=== PATIENT | female | born 1980 | race Caucasian/White ===

== ENCOUNTER → 2017-12-11 | Outpatient (CLI) | payer MEDICARE ==
[~2017-12-11] MED LIST: DITROPAN XL15 MG PO; KEFLEX500 MG PO; MACROBID 100 M100 MG PO; OMEPRAZOLE20 MG PO; SPRINTEC1 EACH; SURFAK240 MG PO
--- NOTE | 2017-12-11 15:06 | Diagnostic Imaging Report ---
EXAM: Renal Ultrasound INDICATION: Renal calculus COMPARISON: None TECHNIQUE: Transverse and longitudinal images of the kidneys and bladder were obtained. FINDINGS: Right Kidney: Length: 11.2 cm Appearance: Normal echogenicity. Collecting system: No hydronephrosis Stones: None Cyst/Mass: None Left Kidney: Length: 10 cm Appearance: Normal echogenicity. Collecting system: No hydronephrosis Stones: None Cyst/Mass: None Bladder: Unremarkable in appearance. Right ureteral jet is seen. IMPRESSION: Unremarkable bilateral renal ultrasound. No sonographic evidence of renal stone. Signed by: Dr. Tiana Salmon MD on 12/11/2017 3:03 PM
--- NOTE | 2017-12-11 15:13 | Diagnostic Imaging Report ---
RADIOGRAPH(S) OF THE ABDOMEN AND PELVIS, 2 view(s) HISTORY: Calculus of kidney COMPARISON: None available. FINDINGS: No specific evidence of obstruction or ileus. No definite calcification in the region of the kidneys. Partially visualized radiopaque catheter at the right upper quadrant of the abdomen with the tip projecting at the right mid abdomen. A second coiled catheter projects at the pelvis. Multiple peripheral pelvic calcifications, most likely phleboliths. The bones are partially obscured by stool and overlying bowel gas. Multilevel posterior lumbosacral fusion defects. IMPRESSION: 1. Nonobstructive bowel gas pattern. 2. No definitive urinary tract calculus, within the limitations of radiographs. Signed by: Dr. Rakesh Quintero D.O., M.M.M. on 12/11/2017 3:10 PM
== END ==
LOC: US 13:50
PROVIDERS: ATTEND Urology
DX: N20.0 Calculus of kidney (principal)
CPT/HCPCS: 74018; 76770

== ENCOUNTER → 2019-05-29 | Outpatient (CLI) | payer MEDICARE ==
--- NOTE | 2019-05-29 12:00 | Diagnostic Imaging Report ---
EXAM: Renal Ultrasound INDICATION: Urinary tract infection COMPARISON: Renal ultrasound 12/11/2017 TECHNIQUE: Transverse and longitudinal images of the kidneys and bladder were obtained. FINDINGS: Right Kidney: Length: 9.6 cm Appearance: Normal echogenicity. Collecting system: No hydronephrosis Stones: None Cyst/Mass: None Left Kidney: Length: 9.0 cm Appearance: Normal echogenicity. Collecting system: No hydronephrosis Stones: None Cyst/Mass: None Bladder: No mass or. Bilateral ureteral jets visualized. Prevoid volume estimate of 72 cc. IMPRESSION: No hydronephrosis or renal calculi. Signed by: Bishnu Javed MD on 05/29/2019 11:56 AM
== END ==
LOC: US 11:10
PROVIDERS: ATTEND Urology
DX: N39.0 Urinary tract infection, site not specified (principal)
CPT/HCPCS: 76770

== ENCOUNTER → 2021-01-06 | Outpatient (CLI) | payer MEDICARE | LOC: US 14:45 | PROVIDERS: ATTEND Urology | DX: N13.30 Unspecified hydronephrosis (principal) | CPT/HCPCS: 76770; 76857 ==

== ENCOUNTER → 2021-02-01 | Day surgery (SDC) | payer MEDICARE ==
[2021-01-30 15:32] LABS: BASOPHILS % 0.2 % (0.0-1.0); EOSINOPHILS # (AUTO) 0.1 (0.0-0.4); EOSINOPHILS % 0.8 % (0.0-6.0); HEMATOCRIT 40.8 % (34.2-44.1); HEMOGLOBIN 13.1 g/dL (12.0-16.0); LYMPHOCYTES # (AUTO) 1.6 (1.0-3.2); LYMPHOCYTES % 26.9 % (18.0-39.1); MEAN CORPUSCULAR HEMOGLOBIN 28.8 pg (28-32); MEAN CORPUSCULAR HGB CONC 32.1 g/dL (31-35); MEAN CORPUSCULAR VOLUME 89.7 fL (81-99); MONOCYTES # (AUTO) 0.7 (0.2-0.8); MONOCYTES % 11.8 % (4.4-11.3); NEUTROPHILS # (AUTO) 3.7 (2.1-6.9); NEUTROPHILS % 60.1 % (38.7-80.0); PLATELET COUNT 210 x10e3/uL (140-360); RED BLOOD COUNT 4.55 x10e6/uL (3.6-5.1); RED CELL DISTRIBUTION WIDTH 13.8 % (11.7-14.4)
[2021-01-30 16:51] LABS: ANION GAP 15.6 mmol/L (8-16); CALCIUM 8.7 mg/dL (8.4-10.2); CREATININE, SERUM 0.58 mg/dL (0.57-1.11); POTASSIUM 3.6 mmol/L (3.5-5.1)
[~2021-02-01] MED LIST changes: +B&O 60MG R/S 60 MG SUPP PR ONE; +BACLOFEN20 MG PO; +BOTULINUM TOXIN TYPE A 100 UNIT VIAL IM ONE; +CBD GUMMY; +D3; +DAYSEE 0.15-0.1 EACH; +DEXAMETHASONE SOD PHOS INJ 4 MG/ML SDV ONE; +ELDERBERRY ZIN1 EACH; +GENTAMICIN 80MG/NS 100 ML 200 ML IV ONE; +HYDROCHLOROTHIA25 MG; +IOPAMIDOL 300MG/ML 50ML INFUS..BTL IV ONE; +LIDOCAINE HCL 2% LOCAL INJ 5 ML SDV VIAL INJ ONE; +LOSARTAN POTASS25 MG PO; +ONDANSETRON HCL INJ 2MG/ML 2ML 2 MG/ML VIAL ONE; +POVIDONE IODINE 0.05% 0.05 % ML PO ONE; +PROPOFOL IV EMULSION 10 MG/ML 20 ML VIAL ONE; +SEVOFLURANE INHAL SOLN 250 ML PEN BTL ONE
[2021-02-01 10:03] VITALS: BP 124/76
== END | disposition home or self-care (01) ==
LOC: OR 06:36
PROVIDERS: ATTEND Urology
DX: N39.41 Urge incontinence (principal); N39.0 Urinary tract infection, site not specified; N81.2 Incomplete uterovaginal prolapse; N81.6 Rectocele; N31.8 Other neuromuscular dysfunction of bladder; N32.89 Other specified disorders of bladder; N32.3 Diverticulum of bladder; Q05.9 Spina bifida, unspecified; G83.9 Paralytic syndrome, unspecified; I10 Essential (primary) hypertension; M19.90 Unspecified osteoarthritis, unspecified site; M41.9 Scoliosis, unspecified; J39.2 Other diseases of pharynx; K21.9 Gastro-esophageal reflux disease without esophagitis; Z88.3 Allergy status to other anti-infective agents; Z91.040 Latex allergy status; Z01.810 Encounter for preprocedural cardiovascular examination; Z01.812 Encounter for preprocedural laboratory examination; Z20.822 Contact with and (suspected) exposure to COVID-19; Z79.899 Other long term (current) drug therapy; Z98.2 Presence of cerebrospinal fluid drainage device; Z86.73 Personal history of transient ischemic attack (TIA), and cerebral infarction without residual deficits
CPT/HCPCS: 36415 ×2; 52005; 52287; 74420; 80048; 84702; 85025; 87086; 93005; C1758; J0587; J1100; J1580; J2001; J2405; J2704; Q9967; U0002

== ENCOUNTER → 2021-05-03 | Day surgery (SDC) | payer MEDICARE ==
[2021-05-02 10:33] LABS: BASOPHILS % 0.2 % (0.0-1.0); EOSINOPHILS # (AUTO) 0.1 (0.0-0.4); EOSINOPHILS % 1.5 % (0.0-6.0); HEMATOCRIT 40.9 % (34.2-44.1); HEMOGLOBIN 13.2 g/dL (12.0-16.0); LYMPHOCYTES # (AUTO) 1.4 (1.0-3.2); LYMPHOCYTES % 26.5 % (18.0-39.1); MEAN CORPUSCULAR HEMOGLOBIN 28.5 pg (28-32); MEAN CORPUSCULAR HGB CONC 32.3 g/dL (31-35); MEAN CORPUSCULAR VOLUME 88.3 fL (81-99); MONOCYTES # (AUTO) 0.4 (0.2-0.8); MONOCYTES % 8.2 % (4.4-11.3); NEUTROPHILS # (AUTO) 3.4 (2.1-6.9); NEUTROPHILS % 63.2 % (38.7-80.0); PLATELET COUNT 204 x10e3/uL (140-360); RED BLOOD COUNT 4.63 x10e6/uL (3.6-5.1); RED CELL DISTRIBUTION WIDTH 13.8 % (11.7-14.4)
[2021-05-02 10:56] LABS: ANION GAP 13.4 mmol/L (8-16); CALCIUM 8.3 mg/dL (8.4-10.2); CREATININE, SERUM 0.59 mg/dL (0.57-1.11); POTASSIUM 3.4 mmol/L (3.5-5.1)
[~2021-05-03] MED LIST changes: +CEFTRIAXONE 1 GM VIAL ONE; +DIPHENHYDRAMINE HCL INJ 50 MG/ML VIAL ONE; +SODIUM CHLORIDE 0.9% 50ML 100 ML ONE
[2021-05-03 10:40] VITALS: BP 138/70
== END | disposition home or self-care (01) ==
LOC: OR 07:47
PROVIDERS: ATTEND Urology
DX: N39.41 Urge incontinence (principal); N31.9 Neuromuscular dysfunction of bladder, unspecified; N39.0 Urinary tract infection, site not specified; N81.6 Rectocele; N36.41 Hypermobility of urethra; N81.2 Incomplete uterovaginal prolapse; Q05.9 Spina bifida, unspecified; I10 Essential (primary) hypertension; K21.9 Gastro-esophageal reflux disease without esophagitis; R05.9 Cough, unspecified; Z88.3 Allergy status to other anti-infective agents; Z91.040 Latex allergy status; Z01.812 Encounter for preprocedural laboratory examination; Z20.822 Contact with and (suspected) exposure to COVID-19; Z79.899 Other long term (current) drug therapy; Z86.73 Personal history of transient ischemic attack (TIA), and cerebral infarction without residual deficits; Z86.69 Personal history of other diseases of the nervous system and sense organs
CPT/HCPCS: 36415 ×2; 52005; 52287; 74420; 80048; 84702; 85025; C1758; J0587; J0696; J1100; J1200; J1580; J2001; J2405; J2704; Q9967; U0002

== ENCOUNTER → 2021-08-11 | Day surgery (SDC) | payer MEDICARE ==
[2021-08-09 15:34] LABS: BASOPHILS % 0.2 % (0.0-1.0); EOSINOPHILS # (AUTO) 0.1 (0.0-0.4); EOSINOPHILS % 0.7 % (0.0-6.0); HEMATOCRIT 41.1 % (34.2-44.1); HEMOGLOBIN 13.1 g/dL (12.0-16.0); LYMPHOCYTES # (AUTO) 2.2 (1.0-3.2); LYMPHOCYTES % 23.2 % (18.0-39.1); MEAN CORPUSCULAR HEMOGLOBIN 28.8 pg (28-32); MEAN CORPUSCULAR HGB CONC 31.9 g/dL (31-35); MEAN CORPUSCULAR VOLUME 90.3 fL (81-99); MONOCYTES # (AUTO) 0.6 (0.2-0.8); MONOCYTES % 6.6 % (4.4-11.3); NEUTROPHILS # (AUTO) 6.7 (2.1-6.9); PLATELET COUNT 240 x10e3/uL (140-360); RED BLOOD COUNT 4.55 x10e6/uL (3.6-5.1); RED CELL DISTRIBUTION WIDTH 14.4 % (11.7-14.4)
[2021-08-09 15:51] LABS: ANION GAP 12.3 mmol/L (8-16); CALCIUM 8.3 mg/dL (8.4-10.2); CREATININE, SERUM 0.62 mg/dL (0.57-1.11); POTASSIUM 4.3 mmol/L (3.5-5.1)
[~2021-08-11] MED LIST changes: -CEFTRIAXONE 1 GM VIAL ONE; -DAYSEE 0.15-0.1 EACH; +DAYSEE 0.15-0.1 EACH PO; -DIPHENHYDRAMINE HCL INJ 50 MG/ML VIAL ONE; -ELDERBERRY ZIN1 EACH; +ELDERBERRY ZIN1 EACH PO; +FENTANYL CITRATE/PF 100MCG/2 ML INJ ONE; -IOPAMIDOL 300MG/ML 50ML INFUS..BTL IV ONE; +IOPAMIDOL 610MG/1ML 300 MG/ML VIAL IV ONE; +LOSARTAN-HCTZ1 EACH PO; +MIDAZOLAM HCL 2 MG/2 ML VIAL ONE; +PIPERACILLIN/TAZOBACTAM 3.375 GM VIAL ONE; -SODIUM CHLORIDE 0.9% 50ML 100 ML ONE; +VITAMIN D310 MCG PO
[2021-08-11 14:16] VITALS: BP 106/72
== END | disposition home or self-care (01) ==
LOC: OR 10:53
PROVIDERS: ATTEND Urology
DX: N39.41 Urge incontinence (principal); N39.0 Urinary tract infection, site not specified; N32.89 Other specified disorders of bladder; N81.10 Cystocele, unspecified; N81.6 Rectocele; N36.41 Hypermobility of urethra; G47.33 Obstructive sleep apnea (adult) (pediatric); E66.9 Obesity, unspecified; I10 Essential (primary) hypertension; G40.909 Epilepsy, unspecified, not intractable, without status epilepticus; Z88.1 Allergy status to other antibiotic agents; Z91.040 Latex allergy status; Z01.810 Encounter for preprocedural cardiovascular examination; Z01.812 Encounter for preprocedural laboratory examination; Z20.822 Contact with and (suspected) exposure to COVID-19; Z79.899 Other long term (current) drug therapy; Z68.30 Body mass index [BMI] 30.0-30.9, adult
CPT/HCPCS: 36415 ×2; 52005; 52287; 74420; 80048; 84702; 85025; 93005; J0587; J1100; J1580; J2001; J2250; J2405; J2543; J2704; J3010; Q9967; U0002

== ENCOUNTER → 2021-12-01 | Day surgery (SDC) | payer MEDICARE ==
[~2021-12-01] MED LIST changes: +CEFTRIAXONE 1 GM VIAL ONE; +CIPRO250 MG PO; -PIPERACILLIN/TAZOBACTAM 3.375 GM VIAL ONE
[2021-12-01 10:31] LABS: BASOPHILS % 0.1 % (0.0-1.0); EOSINOPHILS # (AUTO) 0.1 (0.0-0.4); EOSINOPHILS % 0.9 % (0.0-6.0); HEMATOCRIT 40.1 % (34.2-44.1); LYMPHOCYTES # (AUTO) 1.8 (1.0-3.2); LYMPHOCYTES % 23.2 % (18.0-39.1); MEAN CORPUSCULAR HEMOGLOBIN 29.2 pg (28-32); MEAN CORPUSCULAR HGB CONC 32.4 g/dL (31-35); MEAN CORPUSCULAR VOLUME 90.1 fL (81-99); MONOCYTES # (AUTO) 0.5 (0.2-0.8); MONOCYTES % 6.6 % (4.4-11.3); NEUTROPHILS # (AUTO) 5.2 (2.1-6.9); NEUTROPHILS % 68.7 % (38.7-80.0); PLATELET COUNT 209 x10e3/uL (140-360); RED BLOOD COUNT 4.45 x10e6/uL (3.6-5.1); RED CELL DISTRIBUTION WIDTH 13.3 % (11.7-14.4)
[2021-12-01 11:12] LABS: ANION GAP 13.8 mmol/L (8-16); CALCIUM 8.3 mg/dL (8.4-10.2); CREATININE, SERUM 0.59 mg/dL (0.57-1.11); POTASSIUM 3.8 mmol/L (3.5-5.1)
[2021-12-01 13:45] VITALS: BP 116/85
== END | disposition home or self-care (01) ==
LOC: OR 09:00
PROVIDERS: ATTEND Urology
DX: N31.9 Neuromuscular dysfunction of bladder, unspecified (principal); N39.41 Urge incontinence; N39.0 Urinary tract infection, site not specified; N81.6 Rectocele; N36.41 Hypermobility of urethra; N81.2 Incomplete uterovaginal prolapse; N32.89 Other specified disorders of bladder; Q05.9 Spina bifida, unspecified; G82.20 Paraplegia, unspecified; I10 Essential (primary) hypertension; Z88.1 Allergy status to other antibiotic agents; Z91.040 Latex allergy status; Z79.899 Other long term (current) drug therapy
CPT/HCPCS: 36415; 52005; 52287; 74420; 80048; 85025; 87086; 93005; C1758; J0587; J0696; J1100; J1580; J2001; J2250; J2405; J2704; J3010; Q9967

== ENCOUNTER → 2022-03-16 | Day surgery (SDC) | payer MEDICARE ==
[2022-03-14 13:24] LABS: BASOPHILS % 0.3 % (0.0-1.0); EOSINOPHILS # (AUTO) 0.1 (0.0-0.4); EOSINOPHILS % 0.6 % (0.0-6.0); HEMATOCRIT 44.3 % (34.2-44.1); HEMOGLOBIN 13.8 g/dL (12.0-16.0); LYMPHOCYTES # (AUTO) 1.8 (1.0-3.2); LYMPHOCYTES % 23.4 % (18.0-39.1); MEAN CORPUSCULAR HEMOGLOBIN 28.9 pg (28-32); MEAN CORPUSCULAR HGB CONC 31.2 g/dL (31-35); MEAN CORPUSCULAR VOLUME 92.9 fL (81-99); MONOCYTES # (AUTO) 0.6 (0.2-0.8); MONOCYTES % 7.1 % (4.4-11.3); NEUTROPHILS # (AUTO) 5.4 (2.1-6.9); NEUTROPHILS % 68.3 % (38.7-80.0); PLATELET COUNT 263 x10e3/uL (140-360); RED BLOOD COUNT 4.77 x10e6/uL (3.6-5.1); RED CELL DISTRIBUTION WIDTH 13.3 % (11.7-14.4)
[2022-03-14 13:42] LABS: ANION GAP 15.6 mmol/L (8-16); CALCIUM 9.1 mg/dL (8.4-10.2); CREATININE, SERUM 0.61 mg/dL (0.57-1.11); POTASSIUM 3.6 mmol/L (3.5-5.1)
[~2022-03-16] MED LIST changes: -B&O 60MG R/S 60 MG SUPP PR ONE; -DEXAMETHASONE SOD PHOS INJ 4 MG/ML SDV ONE; -FENTANYL CITRATE/PF 100MCG/2 ML INJ ONE; -GENTAMICIN 80MG/NS 100 ML 200 ML IV ONE; +METOCLOPRAMIDE HCL 10 MG/2ML VIAL ONE; -ONDANSETRON HCL INJ 2MG/ML 2ML 2 MG/ML VIAL ONE; +PHENYLEPHRINE HCL 1% 10 MG/ML VIAL ONE; -POVIDONE IODINE 0.05% 0.05 % ML PO ONE; -SEVOFLURANE INHAL SOLN 250 ML PEN BTL ONE
[2022-03-16 12:40] VITALS: BP 113/74
== END | disposition home or self-care (01) ==
LOC: OR 08:55
PROVIDERS: ATTEND Urology
DX: N31.9 Neuromuscular dysfunction of bladder, unspecified (principal); N39.41 Urge incontinence; N39.0 Urinary tract infection, site not specified; N81.2 Incomplete uterovaginal prolapse; N36.41 Hypermobility of urethra; N39.44 Nocturnal enuresis; N13.30 Unspecified hydronephrosis; N32.89 Other specified disorders of bladder; Q05.9 Spina bifida, unspecified; G82.20 Paraplegia, unspecified; I10 Essential (primary) hypertension; K21.9 Gastro-esophageal reflux disease without esophagitis; Z88.3 Allergy status to other anti-infective agents; Z91.040 Latex allergy status; Z88.1 Allergy status to other antibiotic agents; Z79.899 Other long term (current) drug therapy; Z01.810 Encounter for preprocedural cardiovascular examination; Z01.812 Encounter for preprocedural laboratory examination; Z96.89 Presence of other specified functional implants; Z86.73 Personal history of transient ischemic attack (TIA), and cerebral infarction without residual deficits
CPT/HCPCS: 36415; 52005; 52287; 74420; 80048; 85025; 87086; 93005; C1758; J0587; J0696; J2001; J2250; J2370; J2704; J2765; Q9967

== ENCOUNTER → 2022-06-06 | Day surgery (SDC) | payer MEDICARE ==
[~2022-06-06] MED LIST changes: +ACETAMINOPHEN 1000 MG/100 ML 100 ML IV ONE; +CEFEPIME HCL 1 GM VIAL ONE; -CEFTRIAXONE 1 GM VIAL ONE; +DEXAMETHASONE SOD PHOS INJ 4 MG/ML SDV ONE; +FENTANYL CITRATE/PF 100MCG/2 ML INJ ONE; +GENTAMICIN 80MG/NS 100 ML 200 ML IV ONE; +LACTATED RINGER'S 1,000 ML ONE; -METOCLOPRAMIDE HCL 10 MG/2ML VIAL ONE; -MIDAZOLAM HCL 2 MG/2 ML VIAL ONE; +ONDANSETRON HCL INJ 2MG/ML 2ML 2 MG/ML VIAL ONE; -PHENYLEPHRINE HCL 1% 10 MG/ML VIAL ONE; +POVIDONE IODINE 0.05% 0.05 % ML PO ONE; +SEVOFLURANE INHAL SOLN 250 ML PEN BTL ONE
[2022-06-06 08:36] LABS: ANION GAP 14.8 mmol/L (8-16); CALCIUM 9.3 mg/dL (8.4-10.2); CREATININE, SERUM 0.64 mg/dL (0.57-1.11); POTASSIUM 3.8 mmol/L (3.5-5.1)
[2022-06-06 11:20] VITALS: BP 113/99
== END | disposition home or self-care (01) ==
LOC: OR 07:13
PROVIDERS: ATTEND Urology
DX: N39.41 Urge incontinence (principal); N39.0 Urinary tract infection, site not specified; N81.3 Complete uterovaginal prolapse; N36.41 Hypermobility of urethra; N31.9 Neuromuscular dysfunction of bladder, unspecified; N39.44 Nocturnal enuresis; Q05.9 Spina bifida, unspecified; N13.30 Unspecified hydronephrosis; Z79.899 Other long term (current) drug therapy
CPT/HCPCS: 36415; 52005; 52287; 74420; 80048; 84702; 87086; C1758; J0131; J0587; J0692; J1100; J1580; J2001; J2405; J2704; J3010; J7121; Q9967

== ENCOUNTER 2022-07-06 10:33 | Emergency (ER) | payer MEDICARE ==
[~2022-07-06] VITALS: Ht 157.5 cm; Wt 72.6 kg
[~2022-07-06 10:33] MED LIST changes: -ACETAMINOPHEN 1000 MG/100 ML 100 ML IV ONE; -BOTULINUM TOXIN TYPE A 100 UNIT VIAL IM ONE; -CEFEPIME HCL 1 GM VIAL ONE; -DEXAMETHASONE SOD PHOS INJ 4 MG/ML SDV ONE; -FENTANYL CITRATE/PF 100MCG/2 ML INJ ONE; -GENTAMICIN 80MG/NS 100 ML 200 ML IV ONE; -IOPAMIDOL 610MG/1ML 300 MG/ML VIAL IV ONE; -LACTATED RINGER'S 1,000 ML ONE; -LIDOCAINE HCL 2% LOCAL INJ 5 ML SDV VIAL INJ ONE; -ONDANSETRON HCL INJ 2MG/ML 2ML 2 MG/ML VIAL ONE; -POVIDONE IODINE 0.05% 0.05 % ML PO ONE; -PROPOFOL IV EMULSION 10 MG/ML 20 ML VIAL ONE; -SEVOFLURANE INHAL SOLN 250 ML PEN BTL ONE
== END 2022-07-06 12:09 | disposition home or self-care (01) ==
LOC: ER 10:38
DX: L89.519 Pressure ulcer of right ankle, unspecified stage (principal); I10 Essential (primary) hypertension; K21.9 Gastro-esophageal reflux disease without esophagitis; Q05.4 Unspecified spina bifida with hydrocephalus; N31.9 Neuromuscular dysfunction of bladder, unspecified
CPT/HCPCS: 99282

== ENCOUNTER 2022-07-10 13:56 | Inpatient (IN) | payer MEDICARE ==
[~2022-07-10] VITALS: Ht 157.5 cm; Wt 72.6 kg
[2022-07-10 15:34] LABS: BASOPHILS % 0.1 % (0.0-1.0); EOSINOPHILS % 0.4 % (0.0-6.0); HEMATOCRIT 39.3 % (34.2-44.1); LYMPHOCYTES # (AUTO) 1.2 (1.0-3.2); LYMPHOCYTES % 12.2 % (18.0-39.1); MEAN CORPUSCULAR HGB CONC 33.1 g/dL (31-35); MEAN CORPUSCULAR VOLUME 87.5 fL (81-99); MONOCYTES # (AUTO) 0.5 (0.2-0.8); MONOCYTES % 4.9 % (4.4-11.3); NEUTROPHILS # (AUTO) 8.1 (2.1-6.9); PLATELET COUNT 243 x10e3/uL (140-360); RED BLOOD COUNT 4.49 x10e6/uL (3.6-5.1); RED CELL DISTRIBUTION WIDTH 13.9 % (11.7-14.4)
[2022-07-10 15:48] LABS: ANION GAP 12.5 mmol/L (8-16); CALCIUM 8.5 mg/dL (8.4-10.2); CREATININE, SERUM 0.66 mg/dL (0.57-1.11); POTASSIUM 3.5 mmol/L (3.5-5.1)
[2022-07-10] MEDS: OXYBUTYNIN CHLORIDE XL 5 MG TAB PO SCH (17:00)
[2022-07-10] MEDS ORDERED: OXYBUTYNIN CHLORIDE 15 MG PO SCH (17:00)
[2022-07-10] MEDS ORDERED: Vancomycin IV 1 GM in SODIUM CHLORIDE 0.9% 250ML 250 ML IV ONE (17:00)
[2022-07-10] MEDS ORDERED: ONDANSETRON HCL INJ 2MG/ML 2ML 2 MG/ML VIAL IV PRN (17:00)
[2022-07-10] MEDS: BACLOFEN 10 MG TAB PO SCH ×2 (17:54→21:00)
[2022-07-10] MEDS: E ESTRADIOL E ESTRAD PO SCH (21:00)
[2022-07-10] MEDS: NORGEST PO SCH (21:00)
[2022-07-10] MEDS: PANTOPRAZOLE SOD 40 MG TABEC PO SCH (21:06)
[2022-07-10 23:04] VITALS: BP 139/90
[2022-07-10] MEDS: ACETAMINOPHEN 325 MG TAB PO PRN (23:40)
[2022-07-11] VITALS (8 sets, daily range): BP systolic 102–144; BP diastolic 58–87
[2022-07-11] MEDS ORDERED: SODIUM CHLORIDE 0.9% 250ML 250 ML ONE (05:05)
[2022-07-11] MEDS: BACLOFEN 10 MG TAB PO SCH ×5 (08:41→21:12)
[2022-07-11] MEDS: OXYBUTYNIN CHLORIDE XL 5 MG TAB PO SCH ×2 (08:42→17:00)
[2022-07-11] MEDS: LOSARTAN POTASSIUM 25 MG TAB PO SCH (08:42)
[2022-07-11] MEDS: Vancomycin IV 1 GM in SODIUM CHLORIDE 0.9% 250ML 250 ML IV SCH (11:15)
[2022-07-11] MEDS: ACETAMINOPHEN 325 MG TAB PO PRN (14:54)
[2022-07-11] MEDS ORDERED: ENOXAPARIN SOD INJ 40 MG/0.4 ML SYR SC SCH (17:00)
[2022-07-11] MEDS ORDERED: ONDANSETRON HCL 4 MG ORAL DISINTEGRATING TAB PO PRN (18:15)
[2022-07-11] MEDS: E ESTRADIOL E ESTRAD PO SCH (21:00)
[2022-07-11] MEDS: NORGEST PO SCH (21:00)
[2022-07-11] MEDS: PANTOPRAZOLE SOD 40 MG TABEC PO SCH (21:12)
[2022-07-12 00:19] VITALS: BP 114/71
[2022-07-12] MEDS: Vancomycin IV 1 GM in SODIUM CHLORIDE 0.9% 250ML 250 ML IV SCH (00:39)
[2022-07-12 00:43] VITALS: BP 113/71
[2022-07-12 04:48] VITALS: BP 99/60
[2022-07-12 06:19] LABS: BASOPHILS % 0.3 % (0.0-1.0); EOSINOPHILS # (AUTO) 0.2 (0.0-0.4); EOSINOPHILS % 3.3 % (0.0-6.0); HEMATOCRIT 34.5 % (34.2-44.1); HEMOGLOBIN 11.5 g/dL (12.0-16.0); LYMPHOCYTES # (AUTO) 1.9 (1.0-3.2); LYMPHOCYTES % 33.4 % (18.0-39.1); MEAN CORPUSCULAR HEMOGLOBIN 29.4 pg (28-32); MEAN CORPUSCULAR HGB CONC 33.3 g/dL (31-35); MEAN CORPUSCULAR VOLUME 88.2 fL (81-99); MONOCYTES # (AUTO) 0.6 (0.2-0.8); MONOCYTES % 11.2 % (4.4-11.3); NEUTROPHILS # (AUTO) 2.9 (2.1-6.9); NEUTROPHILS % 51.3 % (38.7-80.0); PLATELET COUNT 206 x10e3/uL (140-360); RED BLOOD COUNT 3.91 x10e6/uL (3.6-5.1)
[2022-07-12 06:40] LABS: ANION GAP 7.9 mmol/L (8-16); CALCIUM 7.7 mg/dL (8.4-10.2); CREATININE, SERUM 0.62 mg/dL (0.57-1.11); POTASSIUM 3.9 mmol/L (3.5-5.1)
[2022-07-12 07:30] VITALS: BP 117/73
[2022-07-12 07:59] VITALS: BP 117/73
[2022-07-12] MEDS: LOSARTAN POTASSIUM 25 MG TAB PO SCH (09:00)
[2022-07-12] MEDS ORDERED: MUPIROCIN 2% OINT 22 GM TUBE TOP SCH (09:00)
[2022-07-12] MEDS: OXYBUTYNIN CHLORIDE XL 5 MG TAB PO SCH (09:36)
[2022-07-12] MEDS: BACLOFEN 10 MG TAB PO SCH (09:36)
[2022-07-12] MEDS ORDERED: CIPRO500 MG PO (10:41)
[2022-07-12] MEDS ORDERED: DOXYCYCLINE HY100 MG PO (10:42)
[2022-07-12 11:15] VITALS: BP 135/77
== END 2022-07-12 12:29 | disposition home or self-care (01) | DRG 593 ==
LOC: ER 14:01 → ERHOLD 16:33 → MED/SURG3 22:19
PROVIDERS: ADMIT Internal Medicine; ATTEND Internal Medicine
DX: L97.419 Non-pressure chronic ulcer of right heel and midfoot with unspecified severity (principal); L03.115 Cellulitis of right lower limb; Q05.9 Spina bifida, unspecified; N31.9 Neuromuscular dysfunction of bladder, unspecified; Z99.3 Dependence on wheelchair; Z20.822 Contact with and (suspected) exposure to COVID-19; B96.5 Pseudomonas (aeruginosa) (mallei) (pseudomallei) as the cause of diseases classified elsewhere; Z88.1 Allergy status to other antibiotic agents; Z91.040 Latex allergy status
CPT/HCPCS: 0223U; 36415; 80048; 83036; 85025; 87040; 93922; 93925; 93970; 99252; 99284; J0692; J1650; J7050

== ENCOUNTER 2022-07-10 14:10 | Outpatient (RCR) | payer MEDICARE ==
[~2022-07-10 14:10] MED LIST changes: +LIDOCAINE VISC 2% SOLN 15 ML UDC ONE; +MUPIROCIN 2% OINT 22 GM TUBE ONE
[2022-07-12] MEDS ORDERED: CIPRO500 MG PO (10:41)
[2022-07-12] MEDS ORDERED: DOXYCYCLINE HY100 MG PO (10:42)
== END 2022-07-15 ==
LOC: WCC 14:10
PROVIDERS: ATTEND Family Medicine Adult Medicine
DX: L89.610 Pressure ulcer of right heel, unstageable (principal); L03.818 Cellulitis of other sites; R60.9 Edema, unspecified
CPT/HCPCS: 87071; 87075; 87186; 87205

== ENCOUNTER → 2022-08-15 | Outpatient (RCR) | payer MEDICARE ==
[~2022-08-15] MED LIST changes: +CIPRO500 MG PO; +DOXYCYCLINE HY100 MG PO
== END ==
LOC: WCC 07-16 08:00
PROVIDERS: ATTEND Family Medicine Adult Medicine
DX: L89.610 Pressure ulcer of right heel, unstageable (principal); L03.818 Cellulitis of other sites; B99.8 Other infectious disease; S30.820A Blister (nonthermal) of lower back and pelvis, initial encounter; R60.9 Edema, unspecified

== ENCOUNTER 2022-09-11 10:16 | Outpatient (RCR) | payer MEDICARE ==
[~2022-09-11 10:16] MED LIST changes: +MINERAL OIL/PETROLAT/GLYCERI 6OZ BTL ONE; -MUPIROCIN 2% OINT 22 GM TUBE ONE
[2022-09-12] MEDS ORDERED: IOPAMIDOL 610MG/1ML 300 MG/ML VIAL IV ONE (09:38)
[2022-09-12] MEDS ORDERED: BOTULINUM TOXIN TYPE A 100 UNIT VIAL IM ONE (09:39)
== END 2022-09-14 ==
LOC: WCC 10:16
PROVIDERS: ATTEND Family Medicine Adult Medicine
DX: L89.610 Pressure ulcer of right heel, unstageable (principal); R60.9 Edema, unspecified
CPT/HCPCS: 11042 ×4; 99213 ×4; J0587; Q9967

== ENCOUNTER → 2022-09-12 | Day surgery (SDC) | payer MEDICARE ==
[~2022-09-12] MED LIST changes: +CEFTRIAXONE 1 GM VIAL ONE; +DEXAMETHASONE SOD PHOS INJ 4 MG/ML SDV ONE; +FENTANYL CITRATE/PF 100MCG/2 ML INJ ONE; +GENTAMICIN 80MG/NS 100 ML 200 ML IV ONE; +LACTATED RINGER'S 1,000 ML ONE; +LIDOCAINE HCL 2% LOCAL INJ 5 ML SDV VIAL INJ ONE; -LIDOCAINE VISC 2% SOLN 15 ML UDC ONE; -MINERAL OIL/PETROLAT/GLYCERI 6OZ BTL ONE; +ONDANSETRON HCL INJ 2MG/ML 2ML 2 MG/ML VIAL ONE; +POVIDONE IODINE 0.05% 0.05 % ML PO ONE; +PROPOFOL IV EMULSION 10 MG/ML 20 ML VIAL ONE; +SEVOFLURANE INHAL SOLN 250 ML PEN BTL ONE
[2022-09-12 09:00] LABS: BASOPHILS % 0.1 % (0.0-1.0); EOSINOPHILS # (AUTO) 0.1 (0.0-0.4); EOSINOPHILS % 1.1 % (0.0-6.0); HEMATOCRIT 39.8 % (34.2-44.1); HEMOGLOBIN 13.5 g/dL (12.0-16.0); LYMPHOCYTES # (AUTO) 1.6 (1.0-3.2); LYMPHOCYTES % 20.6 % (18.0-39.1); MEAN CORPUSCULAR HEMOGLOBIN 29.3 pg (28-32); MEAN CORPUSCULAR HGB CONC 33.9 g/dL (31-35); MEAN CORPUSCULAR VOLUME 86.3 fL (81-99); MONOCYTES # (AUTO) 0.6 (0.2-0.8); MONOCYTES % 7.7 % (4.4-11.3); NEUTROPHILS # (AUTO) 5.3 (2.1-6.9); NEUTROPHILS % 70.2 % (38.7-80.0); PLATELET COUNT 242 x10e3/uL (140-360); RED BLOOD COUNT 4.61 x10e6/uL (3.6-5.1); RED CELL DISTRIBUTION WIDTH 13.6 % (11.7-14.4)
[2022-09-12 09:19] LABS: ANION GAP 13.4 mmol/L (8-16); CALCIUM 8.9 mg/dL (8.4-10.2); CREATININE, SERUM 0.62 mg/dL (0.57-1.11); POTASSIUM 3.4 mmol/L (3.5-5.1)
[2022-09-12 11:41] VITALS: BP 114/86; PULSE 84; RESP 18; O2SAT 100
== END | disposition home or self-care (01) ==
LOC: OR 08:05
PROVIDERS: ATTEND Urology
DX: N39.41 Urge incontinence (principal); N39.0 Urinary tract infection, site not specified; N81.6 Rectocele; N36.41 Hypermobility of urethra; N81.2 Incomplete uterovaginal prolapse; N32.89 Other specified disorders of bladder; I10 Essential (primary) hypertension; Q05.9 Spina bifida, unspecified; Z88.8 Allergy status to other drugs, medicaments and biological substances; Z88.1 Allergy status to other antibiotic agents; Z91.040 Latex allergy status
CPT/HCPCS: 36415; 52005; 52287; 74420; 80048; 84702; 85025; 87086; 93005; C1758; J0696; J1100; J1580; J2001; J2405; J2704; J3010; J7121

== ENCOUNTER 2023-01-15 10:12 | Outpatient (RCR) | payer MEDICARE ==
[~2023-01-15 10:12] MED LIST changes: -CEFTRIAXONE 1 GM VIAL ONE; -DEXAMETHASONE SOD PHOS INJ 4 MG/ML SDV ONE; -FENTANYL CITRATE/PF 100MCG/2 ML INJ ONE; -GENTAMICIN 80MG/NS 100 ML 200 ML IV ONE; -LACTATED RINGER'S 1,000 ML ONE; -LIDOCAINE HCL 2% LOCAL INJ 5 ML SDV VIAL INJ ONE; +LIDOCAINE HCL 5% OINMENT 35.44 GM TUBE TP ONE; +LIDOCAINE/PRILOCAINE 2.5-2.5% KIT ONE; +METOPROLOL SUCC25 MG PO; +MINERAL OIL/PETROLAT/GLYCERI 6OZ BTL ONE; -ONDANSETRON HCL INJ 2MG/ML 2ML 2 MG/ML VIAL ONE; +PEPCID20 MG PO; -POVIDONE IODINE 0.05% 0.05 % ML PO ONE; -PROPOFOL IV EMULSION 10 MG/ML 20 ML VIAL ONE; -SEVOFLURANE INHAL SOLN 250 ML PEN BTL ONE; +TRIAMCINOLONE ACET 0.1% CREAM 15 GM TUBE ONE
[2023-01-15] MEDS ORDERED: MINERAL OIL/PETROLAT/GLYCERI 6OZ BTL ONE (12:21)
[2023-01-15] MEDS ORDERED: LIDOCAINE/PRILOCAINE 2.5-2.5% KIT ONE (12:21)
== END 2023-01-15 23:26 | disposition home or self-care (01) ==
LOC: WCC 10:12
PROVIDERS: ATTEND Internal Medicine Infectious Disease
DX: L89.610 Pressure ulcer of right heel, unstageable (principal); R60.9 Edema, unspecified

== ENCOUNTER 2023-02-13 15:16 | Outpatient (RCR) | payer MEDICARE ==
[~2023-02-13 15:16] MED LIST changes: -LIDOCAINE HCL 5% OINMENT 35.44 GM TUBE TP ONE; +LIDOCAINE VISC 2% SOLN 15 ML UDC ONE; -LIDOCAINE/PRILOCAINE 2.5-2.5% KIT ONE; -MINERAL OIL/PETROLAT/GLYCERI 6OZ BTL ONE; -TRIAMCINOLONE ACET 0.1% CREAM 15 GM TUBE ONE
== END 2023-02-14 ==
LOC: WCC 15:16
PROVIDERS: ATTEND Internal Medicine Infectious Disease
DX: L89.610 Pressure ulcer of right heel, unstageable (principal); R60.9 Edema, unspecified
CPT/HCPCS: 85027

== ENCOUNTER → 2023-06-07 | Day surgery (SDC) | payer MEDICARE ==
[2023-06-03 14:11] LABS: ANION GAP 11.9 mmol/L (8-16); CALCIUM 8.7 mg/dL (8.4-10.2); CREATININE, SERUM 0.62 mg/dL (0.57-1.11); POTASSIUM 3.9 mmol/L (3.5-5.1)
[2023-06-03 14:12] LABS: BASOPHILS % 0.2 % (0.0-1.0); EOSINOPHILS # (AUTO) 0.1 (0.0-0.4); EOSINOPHILS % 0.7 % (0.0-6.0); HEMATOCRIT 37.1 % (34.2-44.1); HEMOGLOBIN 11.6 g/dL (12.0-16.0); LYMPHOCYTES # (AUTO) 1.6 (1.0-3.2); LYMPHOCYTES % 14.4 % (18.0-39.1); MEAN CORPUSCULAR HEMOGLOBIN 26.9 pg (28-32); MEAN CORPUSCULAR HGB CONC 31.3 g/dL (31-35); MEAN CORPUSCULAR VOLUME 86.1 fL (81-99); MONOCYTES # (AUTO) 0.5 (0.2-0.8); MONOCYTES % 4.5 % (4.4-11.3); NEUTROPHILS # (AUTO) 8.7 (2.1-6.9); NEUTROPHILS % 79.6 % (38.7-80.0); PLATELET COUNT 364 x10e3/uL (140-360); RED BLOOD COUNT 4.31 x10e6/uL (3.6-5.1); RED CELL DISTRIBUTION WIDTH 13.9 % (11.7-14.4); WHITE BLOOD COUNT 10.95 x10e3/uL (4.8-10.8)
[~2023-06-07] MED LIST changes: +BENZONATATE200 MG PO; +BOTULINUM TOXIN TYPE A 100 UNIT VIAL IM ONE; +BREZTRI AEROS10.7 GM; +CEFUROXIME250 MG PO; +CORLANOR5 MG PO; +DEXAMETHASONE SOD PHOS INJ 4 MG/ML SDV ONE; +FENTANYL CITRATE/PF 100MCG/2 ML INJ ONE; +IOPAMIDOL 610MG/1ML 300 MG/ML VIAL IV ONE; +JUVEN PACKET1 EACH PO; +LIDOCAINE HCL 1% 2 ML AMP ONE; +LIDOCAINE HCL 2% LOCAL INJ 5 ML SDV VIAL INJ ONE; -LIDOCAINE VISC 2% SOLN 15 ML UDC ONE; +ONDANSETRON HCL INJ 2MG/ML 2ML 2 MG/ML VIAL ONE; +PROMETHAZINE DM; +PROPOFOL IV EMULSION 10 MG/ML 20 ML VIAL ONE; +SEVOFLURANE INHAL SOLN 250 ML PEN BTL ONE; +TUMS200 MG PO; +VITAMIN C1000 MG PO
[2023-06-07] MEDS: LACTATED RINGER'S 1,000 ML ONE (09:24)
[2023-06-07] MEDS: CEFTRIAXONE 1 GM VIAL ONE (09:24)
[2023-06-07] MEDS: GENTAMICIN 80MG/NS 100 ML 200 ML IV ONE (09:27)
[2023-06-07 10:43] VITALS: O2SAT 100
[2023-06-07 11:15] VITALS: BP 111/82; PULSE 75; RESP 14
== END | disposition home or self-care (01) ==
LOC: OR 07:47
PROVIDERS: ATTEND Urology
DX: N39.41 Urge incontinence (principal); N39.0 Urinary tract infection, site not specified; N36.41 Hypermobility of urethra; N32.89 Other specified disorders of bladder; N31.9 Neuromuscular dysfunction of bladder, unspecified; N39.44 Nocturnal enuresis; N13.30 Unspecified hydronephrosis; N81.89 Other female genital prolapse; I10 Essential (primary) hypertension; I49.9 Cardiac arrhythmia, unspecified; J45.909 Unspecified asthma, uncomplicated; K21.9 Gastro-esophageal reflux disease without esophagitis; Q05.9 Spina bifida, unspecified; Z88.1 Allergy status to other antibiotic agents; Z91.040 Latex allergy status; Z68.31 Body mass index [BMI] 31.0-31.9, adult
CPT/HCPCS: 36415 ×2; 52005; 52287; 74420; 80048; 84702; 85025; 87086; C1758; J0587; J0696; J1100; J1580; J2001 ×2; J2405; J2704; J3010; J7121; Q9967

== ENCOUNTER → 2023-10-05 | Day surgery (SDC) | payer MEDICARE ==
[2023-10-03 15:07] LABS: BASOPHILS % 0.1 % (0.0-1.0); EOSINOPHILS # (AUTO) 0.1 (0.0-0.4); EOSINOPHILS % 1.2 % (0.0-6.0); HEMATOCRIT 40.7 % (34.2-44.1); HEMOGLOBIN 12.8 g/dL (12.0-16.0); LYMPHOCYTES # (AUTO) 1.7 (1.0-3.2); LYMPHOCYTES % 21.8 % (18.0-39.1); MEAN CORPUSCULAR HEMOGLOBIN 27.6 pg (28-32); MEAN CORPUSCULAR HGB CONC 31.4 g/dL (31-35); MEAN CORPUSCULAR VOLUME 87.9 fL (81-99); MONOCYTES # (AUTO) 0.5 (0.2-0.8); MONOCYTES % 6.3 % (4.4-11.3); NEUTROPHILS # (AUTO) 5.5 (2.1-6.9); NEUTROPHILS % 70.3 % (38.7-80.0); PLATELET COUNT 226 x10e3/uL (140-360); RED BLOOD COUNT 4.63 x10e6/uL (3.6-5.1); RED CELL DISTRIBUTION WIDTH 13.8 % (11.7-14.4); WHITE BLOOD COUNT 7.79 x10e3/uL (4.8-10.8)
[2023-10-03 16:30] LABS: ANION GAP 14.5 mmol/L (8-16); CALCIUM 8.9 mg/dL (8.4-10.2); CREATININE, SERUM 0.64 mg/dL (0.57-1.11); POTASSIUM 4.5 mmol/L (3.5-5.1)
[~2023-10-05] MED LIST changes: +KETOROLAC TROMETHAMINE 30 MG/ML VIAL ONE; -LIDOCAINE HCL 1% 2 ML AMP ONE
[2023-10-05] MEDS: CEFTRIAXONE 1 GM VIAL ONE (07:06)
[2023-10-05] MEDS: LACTATED RINGER'S 1,000 ML ONE (07:06)
[2023-10-05] MEDS: GENTAMICIN 80MG/NS 100 ML 200 ML IV ONE (07:06)
[2023-10-05 08:29] VITALS: TEMP 98.2
[2023-10-05 09:15] VITALS: BP 131/82; PULSE 76; RESP 16; O2SAT 98
== END | disposition home or self-care (01) ==
LOC: OR 06:05
PROVIDERS: ATTEND Urology
DX: N31.9 Neuromuscular dysfunction of bladder, unspecified (principal); N39.41 Urge incontinence; N39.0 Urinary tract infection, site not specified; N32.89 Other specified disorders of bladder; N81.2 Incomplete uterovaginal prolapse; N36.41 Hypermobility of urethra; R00.0 Tachycardia, unspecified; Q05.9 Spina bifida, unspecified; Z88.3 Allergy status to other anti-infective agents; Z91.040 Latex allergy status; Z91.09 Other allergy status, other than to drugs and biological substances; Z01.810 Encounter for preprocedural cardiovascular examination; Z01.812 Encounter for preprocedural laboratory examination; Z98.2 Presence of cerebrospinal fluid drainage device
CPT/HCPCS: 36415 ×2; 52005; 52287; 74420; 80048; 84702; 85025; 87086; 87186; 93005; J0587; J0696; J1100; J1580; J1885; J2001; J2405; J2704; J3010; J7121; Q9967

== ENCOUNTER → 2024-02-28 | Day surgery (SDC) | payer MEDICARE ==
[2024-02-27 15:07] LABS: BASOPHILS % 0.3 % (0.0-1.0); EOSINOPHILS % 0.4 % (0.0-6.0); HEMATOCRIT 41.7 % (34.2-44.1); HEMOGLOBIN 13.1 g/dL (12.0-16.0); LYMPHOCYTES % 27.9 % (18.0-39.1); MEAN CORPUSCULAR HEMOGLOBIN 28.7 pg (28-32); MEAN CORPUSCULAR HGB CONC 31.4 g/dL (31-35); MEAN CORPUSCULAR VOLUME 91.2 fL (81-99); MONOCYTES # (AUTO) 0.6 (0.2-0.8); MONOCYTES % 7.8 % (4.4-11.3); NEUTROPHILS # (AUTO) 4.5 (2.1-6.9); NEUTROPHILS % 63.3 % (38.7-80.0); PLATELET COUNT 242 x10e3/uL (140-360); RED BLOOD COUNT 4.57 x10e6/uL (3.6-5.1); RED CELL DISTRIBUTION WIDTH 14.2 % (11.7-14.4); WHITE BLOOD COUNT 7.05 x10e3/uL (4.8-10.8)
[2024-02-27 15:28] LABS: ANION GAP 15.3 mmol/L (8-16); CALCIUM 8.5 mg/dL (8.4-10.2); CREATININE, SERUM 0.63 mg/dL (0.57-1.11); POTASSIUM 4.3 mmol/L (3.5-5.1)
[~2024-02-28] MED LIST changes: -IOPAMIDOL 610MG/1ML 300 MG/ML VIAL IV ONE; -KETOROLAC TROMETHAMINE 30 MG/ML VIAL ONE; +PHENYLEPHRINE HCL 1% 10 MG/ML VIAL ONE; +SODIUM CHLORIDE 0.9% 100 ML ONE; +XYZAL5 MG
[2024-02-28] MEDS: LACTATED RINGER'S 1,000 ML ONE (09:54)
[2024-02-28] MEDS: GENTAMICIN 80MG/NS 100 ML 200 ML IV ONE (09:54)
[2024-02-28 12:50] VITALS: BP 138/87; PULSE 77; RESP 16; O2SAT 96
== END | disposition home or self-care (01) ==
LOC: OR 09:07
PROVIDERS: ATTEND Urology
DX: N39.41 Urge incontinence (principal); N30.30 Trigonitis without hematuria; N81.2 Incomplete uterovaginal prolapse; N31.9 Neuromuscular dysfunction of bladder, unspecified; N32.89 Other specified disorders of bladder; Q05.9 Spina bifida, unspecified; I49.9 Cardiac arrhythmia, unspecified; R05.9 Cough, unspecified; G82.20 Paraplegia, unspecified; Z88.1 Allergy status to other antibiotic agents; Z91.040 Latex allergy status; Z79.899 Other long term (current) drug therapy; Z99.3 Dependence on wheelchair
CPT/HCPCS: 36415 ×2; 52005; 52287; 74420; 80048; 84702; 85025; 87086; 87186; C1758; J0587; J1100; J1580; J2003; J2371; J2405; J2704; J3010; J7050; J7121

== ENCOUNTER 2024-05-19 10:00 | Outpatient (RCR) | payer MEDICARE ==
[~2024-05-19 10:00] MED LIST changes: -BOTULINUM TOXIN TYPE A 100 UNIT VIAL IM ONE; -DEXAMETHASONE SOD PHOS INJ 4 MG/ML SDV ONE; -FENTANYL CITRATE/PF 100MCG/2 ML INJ ONE; -LIDOCAINE HCL 2% LOCAL INJ 5 ML SDV VIAL INJ ONE; -ONDANSETRON HCL INJ 2MG/ML 2ML 2 MG/ML VIAL ONE; -PHENYLEPHRINE HCL 1% 10 MG/ML VIAL ONE; -PROPOFOL IV EMULSION 10 MG/ML 20 ML VIAL ONE; -SEVOFLURANE INHAL SOLN 250 ML PEN BTL ONE; -SODIUM CHLORIDE 0.9% 100 ML ONE
[2024-05-19] MEDS ORDERED: LIDOCAINE/PRILOCAINE 2.5-2.5% KIT ONE (13:24)
[2024-05-19] MEDS ORDERED: MINERAL OIL/PETROLAT/GLYCERI 6OZ BTL ONE ×2 (13:24→13:27)
[2024-05-19] MEDS ORDERED: LIDOCAINE VISC 2% SOLN 15 ML UDC ONE ×2 (13:24→13:27)
[2024-05-29] MEDS ORDERED: ALBUTEROL0.63 MG/3 NEB (17:44)
[2024-05-29] MEDS ORDERED: PREDNISONE20 MG PO (17:44)
[2024-05-29] MEDS ORDERED: NEURONTIN100 MG PO (17:44)
[2024-05-29] MEDS ORDERED: COLD & COUGH E118 ML (17:44)
== END 2024-06-15 ==
LOC: WCC 10:00
PROVIDERS: ATTEND Nurse Practitioner Family
DX: L89.616 Pressure-induced deep tissue damage of right heel (principal)

== ENCOUNTER 2024-05-29 14:05 | Inpatient (IN) | payer MEDICARE ==
[2024-05-29] VITALS (8 sets, daily range): BP systolic 106–113; BP diastolic 55–68; PULSE 73–80; RESP 18; TEMP 97.6–100.7; O2SAT 97–100
[~2024-05-29] VITALS: Ht 154.9 cm; Wt 77.1 kg
[2024-05-29] MEDS ORDERED: SODIUM CHLORIDE 0.9% 1000ML 1,000 ML IV SCH (15:15)
[2024-05-29] MEDS ORDERED: ACETAMINOPHEN 325 MG TAB PO PRN (15:15)
[2024-05-29 16:24] LABS: ALBUMIN 1.8 g/dL (3.5-5.0); ALBUMIN/GLOBULIN RATIO 0.4 (0.8-2.0); ANION GAP 15.7 mmol/L (8-16); BILIRUBIN,TOTAL 3.1 mg/dL (0.2-1.2); CALCIUM 8.5 mg/dL (8.4-10.2); CREATININE, SERUM 0.76 mg/dL (0.57-1.11); TOTAL PROTEIN 6.9 g/dL (6.5-8.1)
[2024-05-29 16:27] LABS: POTASSIUM 2.7 mmol/L (3.5-5.1)
[2024-05-29] MEDS: ACETAMINOPHEN 325 MG TAB PO ONE (17:07)
[2024-05-29] MEDS: POTASSIUM CHLORIDE 20 MEQ TAB CR PO STA ×2 (17:08→20:32)
[2024-05-29] MEDS ORDERED: ALBUTEROL0.63 MG/3 NEB (17:44)
[2024-05-29] MEDS ORDERED: NEURONTIN100 MG PO (17:44)
[2024-05-29] MEDS ORDERED: PREDNISONE20 MG PO (17:44)
[2024-05-29] MEDS ORDERED: COLD & COUGH E118 ML (17:44)
[2024-05-29] MEDS: POTASSIUM CHLORIDE 10MEQ/100ML 100 ML IV SCH (18:00)
[2024-05-29] MEDS ORDERED: CALCIUM CARBONATE 500 MG CHEWABLE TABS PO PRN (19:00)
[2024-05-29] MEDS: POTASSIUM CHLORIDE 20MEQ/100ML 100 ML IV SCH (19:00)
[2024-05-29] MEDS ORDERED: FAMOTIDINE 20 MG TAB PO SCH (19:00)
[2024-05-29 19:36] LABS: BASOPHILS # (AUTO) 0.1 (0.0-0.1); BASOPHILS % 0.3 % (0.0-1.0); EOSINOPHILS # (AUTO) 0.1 (0.0-0.4); EOSINOPHILS % 0.2 % (0.0-6.0); HEMATOCRIT 33.7 % (34.2-44.1); HEMOGLOBIN 10.9 g/dL (12.0-16.0); LYMPHOCYTES # (AUTO) 1.8 (1.0-3.2); MEAN CORPUSCULAR HEMOGLOBIN 26.3 pg (28-32); MEAN CORPUSCULAR HGB CONC 32.3 g/dL (31-35); MEAN CORPUSCULAR VOLUME 81.2 fL (81-99); MONOCYTES # (AUTO) 1.3 (0.2-0.8); MONOCYTES % 3.7 % (4.4-11.3); NEUTROPHILS # (AUTO) 31.4 (2.1-6.9); NEUTROPHILS % 88.3 % (38.7-80.0); PLATELET COUNT 388 x10e3/uL (140-360); RED BLOOD COUNT 4.15 x10e6/uL (3.6-5.1); RED CELL DISTRIBUTION WIDTH 15.3 % (11.7-14.4); WHITE BLOOD COUNT 35.57 x10e3/uL (4.8-10.8)
[2024-05-29] MEDS: BACLOFEN 10 MG TAB PO SCH (20:32)
[2024-05-29] MEDS: GABAPENTIN 100 MG CAP PO SCH (20:32)
[2024-05-29] MEDS: PANTOPRAZOLE SODIUM 20 MG TABLET.DR PO SCH (20:33)
[2024-05-30] VITALS (9 sets, daily range): BP systolic 100–131; BP diastolic 49–113; PULSE 72–88; RESP 17–23; TEMP 98.3–100.6; O2SAT 95–99
[2024-05-30] MEDS: SODIUM CHLORIDE 0.9% 1000ML 1,000 ML IV SCH (01:15)
[2024-05-30] MEDS: ACETAMINOPHEN 325 MG TAB PO PRN (01:37)
[2024-05-30] MEDS: TRAMADOL HCL 50 MG TAB PO PRN (03:29)
[2024-05-30] MEDS: POTASSIUM CHLORIDE 20MEQ/100ML 100 ML IV SCH (03:32)
[2024-05-30 04:36] LABS: LYMPHOCYTES % (MANUAL) 5 % (19-48); METAMYELOCYTES % (MANUAL) 1 % (0-0); MONOCYTES % (MANUAL) 3 % (3.4-9.0); MYELOCYTES % (MANUAL) 1 % (0-0); NEUTROPHILS % (MANUAL) 90 % (40-74)
[2024-05-30 04:38] LABS: ANISOCYTOSIS SLIG; ELLIPTOCYTE, RBC SLIGHT; MICROCYTOSIS SLIGHT; OVALOCYTES FEW; PLATELET ESTIMATE ADEQUATE; PLATELET MORPHOLOGY COMMENT NORMAL; RBC MORPHOLOGY COMMENT ABNORMAL
[2024-05-30 04:39] LABS: POLYCHROMASIA FEW
[2024-05-30 04:40] LABS: HYPOCHROMASIA SLIGHT; POIKILOCYTOSIS SLIG
[2024-05-30 08:11] LABS: BASOPHILS # (AUTO) 0.1 (0.0-0.1); BASOPHILS % 0.2 % (0.0-1.0); EOSINOPHILS # (AUTO) 0.1 (0.0-0.4); EOSINOPHILS % 0.2 % (0.0-6.0); HEMATOCRIT 29.4 % (34.2-44.1); HEMOGLOBIN 9.9 g/dL (12.0-16.0); LYMPHOCYTES # (AUTO) 2.8 (1.0-3.2); LYMPHOCYTES % 8.2 % (18.0-39.1); MEAN CORPUSCULAR HEMOGLOBIN 26.5 pg (28-32); MEAN CORPUSCULAR HGB CONC 33.7 g/dL (31-35); MEAN CORPUSCULAR VOLUME 78.6 fL (81-99); MONOCYTES # (AUTO) 1.7 (0.2-0.8); MONOCYTES % 4.8 % (4.4-11.3); NEUTROPHILS # (AUTO) 28.7 (2.1-6.9); NEUTROPHILS % 83.3 % (38.7-80.0); PLATELET COUNT 373 x10e3/uL (140-360); RED BLOOD COUNT 3.74 x10e6/uL (3.6-5.1); RED CELL DISTRIBUTION WIDTH 15.1 % (11.7-14.4); WHITE BLOOD COUNT 34.45 x10e3/uL (4.8-10.8)
[2024-05-30] MEDS: OXYBUTYNIN CHLORIDE XL 5 MG TAB PO SCH (08:36)
[2024-05-30] MEDS: METOPROLOL SUCCINATE 25 MG TAB XL PO SCH (08:36)
[2024-05-30] MEDS: LORATADINE 10 MG TAB PO SCH (08:37)
[2024-05-30] MEDS: HYDROMORPHONE 1MG/1ML INJ IV PRN (08:38)
[2024-05-30 09:29] LABS: ANION GAP 14.2 mmol/L (8-16); CALCIUM 8.2 mg/dL (8.4-10.2); CREATININE, SERUM 0.79 mg/dL (0.57-1.11); POTASSIUM 4.2 mmol/L (3.5-5.1)
[2024-05-30] MEDS: GUAIFENESIN/DEXTROMETHORPHAN LIQD 5 ML UDC PO PRN (13:05)
[2024-05-30 14:07] LABS: HYPOCHROMASIA MODERATE; LYMPHOCYTES % (MANUAL) 17 % (19-48); MONOCYTES % (MANUAL) 2 % (3.4-9.0); NEUTROPHILS % (MANUAL) 81 % (40-74); PLATELET ESTIMATE ADEQUATE; PLATELET MORPHOLOGY COMMENT NORMAL
[2024-05-30 15:21] LABS: CORONAVIRUS COVID-19 AG NEGATIVE (NEGATIVE); INFLUENZA A AG NEGATIVE (NEGATIVE); INFLUENZA B AG NEGATIVE (NEGATIVE)
[2024-05-30] MEDS: LIDOCAINE 4% PATCH TP SCH (17:37)
[2024-05-31] VITALS (11 sets, daily range): BP systolic 107–137; BP diastolic 56–65; PULSE 75–97; RESP 17–19; TEMP 97.9–98.8; O2SAT 95–100
[2024-05-31 06:12] LABS: BASOPHILS # (AUTO) 0.1 (0.0-0.1); BASOPHILS % 0.2 % (0.0-1.0); EOSINOPHILS # (AUTO) 0.1 (0.0-0.4); EOSINOPHILS % 0.4 % (0.0-6.0); HEMATOCRIT 26.4 % (34.2-44.1); HEMOGLOBIN 8.5 g/dL (12.0-16.0); LYMPHOCYTES # (AUTO) 2.7 (1.0-3.2); LYMPHOCYTES % 9.5 % (18.0-39.1); MEAN CORPUSCULAR HEMOGLOBIN 26.2 pg (28-32); MEAN CORPUSCULAR HGB CONC 32.2 g/dL (31-35); MEAN CORPUSCULAR VOLUME 81.5 fL (81-99); MONOCYTES # (AUTO) 1.5 (0.2-0.8); MONOCYTES % 5.3 % (4.4-11.3); NEUTROPHILS # (AUTO) 22.7 (2.1-6.9); NEUTROPHILS % 80.9 % (38.7-80.0); PLATELET COUNT 327 x10e3/uL (140-360); RED BLOOD COUNT 3.24 x10e6/uL (3.6-5.1); RED CELL DISTRIBUTION WIDTH 15.2 % (11.7-14.4); WHITE BLOOD COUNT 27.99 x10e3/uL (4.8-10.8)
[2024-05-31 06:39] LABS: ALBUMIN 1.2 g/dL (3.5-5.0); ALBUMIN/GLOBULIN RATIO 0.3 (0.8-2.0); ANION GAP 13.7 mmol/L (8-16); BILIRUBIN,TOTAL 1.8 mg/dL (0.2-1.2); CALCIUM 7.5 mg/dL (8.4-10.2); CREATININE, SERUM 0.68 mg/dL (0.57-1.11); MAGNESIUM 1.8 MG/DL (1.3-2.1); POTASSIUM 3.7 mmol/L (3.5-5.1); TOTAL PROTEIN 5.3 g/dL (6.5-8.1)
[2024-05-31] MEDS: ALTEPLASE RECOMBINANT 2 MG/2 ML VIAL IV ONE (21:02)
[2024-05-31] MEDS: FUROSEMIDE INJ 10 MG/ML 2 ML VIAL IV ONE (21:02)
[2024-06-01] VITALS (8 sets, daily range): BP systolic 107–141; BP diastolic 50–78; PULSE 71–89; RESP 17–20; TEMP 98.2–98.9; O2SAT 96–97
[2024-06-01 06:42] LABS: BASOPHILS % 0.2 % (0.0-1.0); EOSINOPHILS # (AUTO) 0.2 (0.0-0.4); EOSINOPHILS % 0.8 % (0.0-6.0); HEMATOCRIT 26.6 % (34.2-44.1); HEMOGLOBIN 8.6 g/dL (12.0-16.0); LYMPHOCYTES # (AUTO) 2.3 (1.0-3.2); LYMPHOCYTES % 11.8 % (18.0-39.1); MEAN CORPUSCULAR HEMOGLOBIN 26.1 pg (28-32); MEAN CORPUSCULAR HGB CONC 32.3 g/dL (31-35); MEAN CORPUSCULAR VOLUME 80.9 fL (81-99); MONOCYTES # (AUTO) 1.6 (0.2-0.8); MONOCYTES % 8.1 % (4.4-11.3); NEUTROPHILS # (AUTO) 14.6 (2.1-6.9); NEUTROPHILS % 74.5 % (38.7-80.0); PLATELET COUNT 404 x10e3/uL (140-360); RED BLOOD COUNT 3.29 x10e6/uL (3.6-5.1); RED CELL DISTRIBUTION WIDTH 15.6 % (11.7-14.4); WHITE BLOOD COUNT 19.64 x10e3/uL (4.8-10.8)
[2024-06-01 07:08] LABS: ALBUMIN 1.2 g/dL (3.5-5.0); ALBUMIN/GLOBULIN RATIO 0.3 (0.8-2.0); ANION GAP 12.5 mmol/L (8-16); BILIRUBIN,TOTAL 1.7 mg/dL (0.2-1.2); CALCIUM 7.6 mg/dL (8.4-10.2); CREATININE, SERUM 0.64 mg/dL (0.57-1.11); POTASSIUM 3.5 mmol/L (3.5-5.1); TOTAL PROTEIN 5.5 g/dL (6.5-8.1)
[2024-06-01] MEDS: FUROSEMIDE INJ 10 MG/ML 4 ML VIAL IV ONE (21:00)
[2024-06-01] MEDS: HYDROMORPHONE 2MG/ML IV PRN (21:41)
[2024-06-02] VITALS (8 sets, daily range): BP systolic 122–138; BP diastolic 62–72; PULSE 73–102; RESP 16–20; TEMP 98–101.3; O2SAT 95–100
[2024-06-02 06:05] LABS: BASOPHILS % 0.2 % (0.0-1.0); EOSINOPHILS # (AUTO) 0.1 (0.0-0.4); EOSINOPHILS % 0.7 % (0.0-6.0); HEMATOCRIT 26.7 % (34.2-44.1); HEMOGLOBIN 8.6 g/dL (12.0-16.0); LYMPHOCYTES # (AUTO) 2.5 (1.0-3.2); LYMPHOCYTES % 14.2 % (18.0-39.1); MEAN CORPUSCULAR HEMOGLOBIN 25.7 pg (28-32); MEAN CORPUSCULAR HGB CONC 32.2 g/dL (31-35); MEAN CORPUSCULAR VOLUME 79.7 fL (81-99); MONOCYTES # (AUTO) 1.7 (0.2-0.8); MONOCYTES % 9.7 % (4.4-11.3); NEUTROPHILS # (AUTO) 12.6 (2.1-6.9); NEUTROPHILS % 71.7 % (38.7-80.0); PLATELET COUNT 475 x10e3/uL (140-360); RED BLOOD COUNT 3.35 x10e6/uL (3.6-5.1); RED CELL DISTRIBUTION WIDTH 15.9 % (11.7-14.4); WHITE BLOOD COUNT 17.62 x10e3/uL (4.8-10.8)
[2024-06-02 06:34] LABS: ALBUMIN 1.4 g/dL (3.5-5.0); ALBUMIN/GLOBULIN RATIO 0.3 (0.8-2.0); ANION GAP 14.5 mmol/L (8-16); BILIRUBIN,TOTAL 1.4 mg/dL (0.2-1.2); CALCIUM 7.7 mg/dL (8.4-10.2); CREATININE, SERUM 0.68 mg/dL (0.57-1.11); POTASSIUM 3.5 mmol/L (3.5-5.1)
[2024-06-02] MEDS: ALBUTEROL SULF 0.083% NEB SOLN 3 ML NEB NEB PRN (08:36)
[2024-06-02] MEDS: FUROSEMIDE INJ 10 MG/ML 4 ML VIAL IV ONE (15:17)
[2024-06-02] MEDS: NYSTATIN SUSPENSION 5 ML UDC PO SCH (17:35)
== END 2024-06-02 18:45 | disposition other institution (70) | DRG 690 ==
LOC: ER 15:03 → ERHOLD 15:07 → ER 15:09 → MED/SURG2 17:20
PROVIDERS: ADMIT Family Medicine; ATTEND Family Medicine
PROC: 02H633Z Insertion of Infusion Device into Right Atrium, Percutaneous Approach (ICD-10-PCS; principal; 2024-05-30)
DX: N39.0 Urinary tract infection, site not specified (principal); Z16.24 Resistance to multiple antibiotics; R44.3 Hallucinations, unspecified; C22.9 Malignant neoplasm of liver, not specified as primary or secondary; E87.6 Hypokalemia; I10 Essential (primary) hypertension; K21.9 Gastro-esophageal reflux disease without esophagitis; R53.81 Other malaise; T42.6X5A Adverse effect of other antiepileptic and sedative-hypnotic drugs, initial encounter; B96.5 Pseudomonas (aeruginosa) (mallei) (pseudomallei) as the cause of diseases classified elsewhere; E66.9 Obesity, unspecified; Z68.32 Body mass index [BMI] 32.0-32.9, adult; Z11.52 Encounter for screening for COVID-19; N31.9 Neuromuscular dysfunction of bladder, unspecified; R33.9 Retention of urine, unspecified; N39.41 Urge incontinence; Q05.9 Spina bifida, unspecified; M54.50 Low back pain, unspecified; Z98.2 Presence of cerebrospinal fluid drainage device; Z87.440 Personal history of urinary (tract) infections; Z91.040 Latex allergy status; Z88.1 Allergy status to other antibiotic agents; Z82.49 Family history of ischemic heart disease and other diseases of the circulatory system
CPT/HCPCS: 36415; 36569; 70450; 71045; 72072; 72146; 72148; 74176; 80048; 80053; 81025; 83735; 85025; 87040; 87086; 94640; 94799; 99284; J1171; J1940; J2543; J2997; J3480; J7030; J7050